=== PATIENT | female | born 1945 | race Caucasian/White ===

== ENCOUNTER → 2017-06-14 | Outpatient (CLI) | payer OTHER, BC ==
[~2017-06-14] MED LIST: ASCA500 PO; ASPI81TA28 PO; ATOR-22 PO; CALC500C70 PO; GLUC1CAP35 PO; LATA0.5S OP; NAPR1TAB9 PO; TYLER650 PO
--- NOTE | 2017-06-14 15:33 | MAMMOGRAPHY REPORT ---
BILATERAL DIGITAL SCREENING MAMMOGRAM WITH CAD: 06/14/2017 CLINICAL HISTORY: Routine screening. Patient has no complaints. TECHNIQUE: Bilateral CC and MLO views were obtained, with additional attempts at both CC and left MLO views to include more posterior tissue. Current study was also evaluated with a Computer Aided Dete ction (CAD) system. COMPARISON: Comparison is made to exams dated: 05/11/2016 mammogram, 05/08/2015 mammogram, 05/07/2014 m ammogram, 05/04/2013 mammogram, 05/02/2012 mammogram, and 04/28/2010 mammogram - [facility] enter. BREAST COMPOSITION: There are scattered areas of fibroglandular density in both breasts. FINDINGS: The exam is suboptimal due to inability of the patient adequately position for the exam, pa rticularly of the left MLO view, despite assistance from a second eeg technologist. There ar e a few stable benign-appearing calcifications in the breasts. No obvious new mass, architectural di stortion or cluster of suspicious microcalcifications is seen. IMPRESSION: ACR BI-RADS CATEGORY 1: NEGATIVE There is no mammographic evidence of malignancy, within the limitations of the exam. A 1 year screeni ng mammogram is recommended. The patient will receive written notification of the results. Approximately 10% of breast cancers are not detected with mammography. A negative mammographic report should not delay biopsy if a clinically suggestive mass is present. Karen Murrieta M.D. ay/:06/14/2017 15:18:29 [employer]: Clara Haq RT(R)(M), [facility] letter sent: Normal 1/2 BI-RADS Code: ACR BI-RADS Category 1: Negative
== END | disposition home or self-care (01) ==
LOC: C.MAMM 08:54
PROVIDERS: ATTEND Family Medicine
DX: Z12.31 Encounter for screening mammogram for malignant neoplasm of breast (principal)

== ENCOUNTER 2017-11-28 14:09 | Inpatient (IN) | payer OTHER, BC ==
[~2017-11-28] VITALS: Ht 154.9 cm; Wt 59.1 kg
[2017-11-28] MEDS ORDERED: HYDROmorphone INJ 0.5 MG/0.5 ML SYR IV PRN (16:00)
--- NOTE | 2017-11-28 16:01 | EMERGENCY ROOM VISIT NOTE ---
History Report prepared by Amauri: Edd Odell Under the Supervision of: Dr. Julio Cesar Yadav M.D. First contact with patient: 15:46 Chief Complaint: FALL Stated Complaint: FELL OUT OF BED THIS AM L KNEE PAIN, CHEMO CURRENT History of Present Illness The patient is a 72 year old female who presents to the Emergency Room with complaints of constant, left-sided weakness following her fall out of bed this morning. The patient's daughter notes that the patient has fallen several times in the past few days. She also notes that the patient has been experiencing left sided weakness and has been unable to bear weight on her left side since her fall. The daughter notes that the patient has been more "glossy-eyed" than usual, is dehydrated, and has not been eating well. The patient has not had anything to eat today. After the fall, the patient's daughter iced the patient' s left hip, gave the patient her prescribed [place], and propped her up with pillows. The patient has brain cancer and her last scheduled dose of chemotherapy is tonight. Source of History: family (Daughter) Onset: Following her fall today. Position: other (Left side. ) Quality: other (Weakness. ) Timing: constant Note: Associated Symptoms: Glossy eyes, loss of appetite, Inability to bear weight on left side. , Review of Systems See HPI for pertinent positives & negatives. A total of 10 systems reviewed and were otherwise negative. Past Medical & Surgical Medical Problems: (1) HLD (hyperlipidemia) Family History No pertinent family history Social History Smoking Status: Unknown if Ever Smoked Occupation Status: retired Current/Historical Medications Scheduled Atorvastatin (Lipitor), 20 MG PO HS Glucosamine-Chondroitin (Osteo Bi-Flex Regular Str), 1 TAB PO DAILY Latanoprost (Xalatan 0.005% Oph Sharla), 1 DROPS OP HS Levetiracetam (Keppra), 750 MG PO BID Lorazepam (Ativan), 0.5 MG PO DIRECTED Multivitamin (Multivitamin), 1 TAB PO DAILY Polyethylene Glycol 3350 (Miralax), 17 GM PO DAILY Temozolomide (Temodar), 100 MG PO DAILY Temozolomide (Temodar), 140 MG PO DAILY Scheduled PRN Acetaminophen (Tylenol Arthitis Ext Rel), 1,300 MG PO Q8 PRN for Pain Hydrocodone/Acetaminophen 5MG/325MG ([place] 5MG/325MG), 1 TABLET PO Q6H PRN for Pain Ondansetron Hcl (Zofran), 8 MG PO BID PRN for Nausea Allergies Coded Allergies: No Known Allergies (Unverified , 07/26/16) Physical Exam Vital Signs Date Time Temp Pulse Resp B/P (MAP) Pulse Ox O2 Delivery O2 Flow Rate FiO2 11/28/17 17:51 76 16 113/70 96 Room Air 11/28/17 16:19 75 16 117/82 95 Room Air 11/28/17 16:17 78 11/28/17 14:45 36.7 87 16 111/72 95 Room Air Physical Exam GENERAL: The patient is cachectic in appearance. Female HEAD: Multiple contusions to face. EYES: Ocular movements intact pupils equal and react to light OROPHARYNX mucous membranes are moist no exudates present no erythema or edema present NECK: Supple no nuchal rigidity CHEST: Good equal expansion LUNGS: Clear and equal to auscultation CARDIAC: Normal S1 and S2 ABDOMEN: Soft nontender no guarding BACK: No CVA tenderness EXTREMITIES: Multiple bruises to her left knee and left hip area. NEURO: The patient appears confused. She is unable to answer questions appropriately. Medical Decision & Procedures ER Provider Diagnostic Interpretation: Radiology results as stated below per my review and radiologist interpretation: CHEST ONE VIEW PORTABLE CLINICAL HISTORY: Pt c/o multiple falls trauma COMPARISON STUDY: 07/26/2016 FINDINGS: The bones soft tissues and hemidiaphragms are normal. The cardiomediastinal silhouette is normal. The lungs are clear. The pulmonary vasculature is normal. IMPRESSION: Negative chest. The above report was generated using voice recognition software. It may contain grammatical, syntax or spelling errors. Electronically signed by: Roberto Carlos Damon M.D. 11/28/2017 5:32 PM Dictated Date/Time: 11/28/2017 5:32 PM HEAD WITHOUT CONTRAST (CT) CT DOSE: 724.83 mGy.cm HISTORY: Mental status change Pt c/o left leg weakness TECHNIQUE: Multiaxial CT images of the head were performed without the use of intravenous contrast. A dose lowering technique was utilized adhering to the principles of ALARA. Comparison: 07/26/2016 Findings: Major sinuses are considered clear. Interval frontal craniotomy. Craniotomy flap is aligned anatomically. Mild ventricular prominence. Midline shift and effacement of the right lateral ventricle is not present currently. There are findings of progressive frontal atrophy as well as encephalomalacia. Appears to be a degree of residual vasogenic edema involving the anterior right frontal as well as anterior left frontal lobes. A component of high density immediately anterior to the right lateral ventricle is present which was identified on the prior study. This presumably represents calcification. No evidence for acute intracranial hemorrhage. The calvarium and skull base are intact. The ventricles and sulci are within normal limits. There is no mass, hematoma, midline shift, or acute infarct. Impression: 1. Interval frontal craniotomy with considerable encephalomalacia involving the anterior right and left frontal lobe regions.. 2. Mildly progressive atrophy compared to the prior study. 3. No evidence for acute intracranial hemorrhage or midline shift. 4. Presence of vasogenic edema of the inferior right frontal lobe raises and a potential concern for residual disease. Correlation with prior imaging studies from any additional facility is considered mandatory. The above report was generated using voice recognition software. It may contain grammatical, syntax or spelling errors. Electronically signed by: Roberto Carlos Damon M.D. 11/28/2017 5:08 PM Dictated Date/Time: 11/28/2017 4:57 PM L FEMUR 2 VIEWS ROUTINE CLINICAL HISTORY: Pt c/o left hip pain trauma. Pain. COMPARISON: None. DISCUSSION: The bones and joint spaces appear intact. There is no evidence of fracture, dislocation or bony disease. Moderate degenerative change of the left knee and left hip. IMPRESSION: No acute process. The above report was generated using voice recognition software. It may contain grammatical, syntax or spelling errors. Electronically signed by: Roberto Carlos Damon M.D. 11/28/2017 5:36 PM Dictated Date/Time: 11/28/2017 5:36 PM PELVIS 1 OR 2 VIEW ROUTINE CLINICAL HISTORY: Pt c/o left hip pain pain COMPARISON: None. DISCUSSION: Mild degenerative changes of the hips bilaterally. Diffuse calcifications soft tissue pelvis suggesting a fibroid-type uterus. No acute bony abnormality. There is no evidence for soft tissue swelling. IMPRESSION: No acute bony abnormality. Calcified uterine fibroids The above report was generated using voice recognition software. It may contain grammatical, syntax or spelling errors. Electronically signed by: Roberto Carlos Damon M.D. 11/28/2017 5:42 PM Dictated Date/Time: 11/28/2017 5:41 PM L TIBIA/FIBULA 2 VIEWS ROUTINE CLINICAL HISTORY: Pt c/o left hip pain trauma. Pain. COMPARISON: None. DISCUSSION: The bones and joint spaces appear intact. There is no evidence of fracture, dislocation or bony disease. There is no evidence for soft tissue swelling. IMPRESSION: Negative study. The above report was generated using voice recognition software. It may contain grammatical, syntax or spelling errors. Electronically signed by: Roberto Carlos Damon M.D. 11/28/2017 5:36 PM Dictated Date/Time: 11/28/2017 5:35 PM Laboratory Results 11/28/17 16:15 Red Blood Count 3.75, Mean Corpuscular Volume 100.0, Mean Corpuscular Hemoglobin 34.1, Mean Corpuscular Hemoglobin Concent 34.1, Mean Platelet Volume 8.7, Neutrophils (%) (Auto) 79.1, Lymphocytes (%) (Auto) 11.3, Monocytes (%) ( Auto) 9.2, Eosinophils (%) (Auto) 0.2, Basophils (%) (Auto) 0.0, Neutrophils # ( Auto) 3.34, Lymphocytes # (Auto) 0.48, Monocytes # (Auto) 0.39, Eosinophils # ( Auto) 0.01, Basophils # (Auto) 0.00 11/28/17 16:15 Test 11/28/17 16:15 11/28/17 16:28 White Blood Count 4.23 K/uL (4.8-10.8) Red Blood Count 3.75 M/uL (4.2-5.4) Hemoglobin 12.8 g/dL (12.0-16.0) Hematocrit 37.5 % (37-47) Mean Corpuscular Volume 100.0 fL (80-100) Mean Corpuscular Hemoglobin 34.1 pg (25-34) Mean Corpuscular Hemoglobin Concent 34.1 g/dl (32-36) Platelet Count 145 K/uL (130-400) Mean Platelet Volume 8.7 fL (7.4-10.4) Neutrophils (%) (Auto) 79.1 % Lymphocytes (%) (Auto) 11.3 % Monocytes (%) (Auto) 9.2 % Eosinophils (%) (Auto) 0.2 % Basophils (%) (Auto) 0.0 % Neutrophils # (Auto) 3.34 K/uL (1.4-6.5) Lymphocytes # (Auto) 0.48 K/uL (1.2-3.4) Monocytes # (Auto) 0.39 K/uL (0.11-0.59) Eosinophils # (Auto) 0.01 K/uL (0-0.5) Basophils # (Auto) 0.00 K/uL (0-0.2) RDW Standard Deviation 46.9 fL (36.4-46.3) RDW Coefficient of Variation 12.9 % (11.5-14.5) Immature Granulocyte % (Auto) 0.2 % Immature Granulocyte # (Auto) 0.01 K/uL (0.00-0.02) Prothrombin Time 9.9 SECONDS (9.0-12.0) Prothromb Time International Ratio 0.9 (0.9-1.1) Activated Partial Thromboplast Time 23.2 SECONDS (21.0-31.0) Partial Thromboplastin Ratio 0.9 Anion Gap 7.0 mmol/L (3-11) Est Creatinine Clear Calc Drug Dose 54.2 ml/min Estimated GFR () 88.6 Estimated GFR (Non- 76.5 BUN/Creatinine Ratio 18.8 (10-20) Calcium Level 9.4 mg/dl (8.5-10.1) Total Creatine Kinase 73 U/L (26-192) Creatine Kinase MB 0.6 ng/ml (0.5-3.6) Creatine Kinase MB Ratio 0.8 (0-3.0) Troponin I < 0.015 ng/ml (0-0.045) Chemistry Specimen Hemolysis Urine Color YELLOW Urine Appearance CLEAR (CLEAR) Urine pH 7.0 (4.5-7.5) Urine Specific [place] 1.014 (1.000-1.030) Urine Protein NEG (NEG) Urine Glucose (UA) NEG (NEG) Urine Ketones NEG (NEG) Urine Occult Blood NEG (NEG) Urine Nitrite NEG (NEG) Urine Bilirubin NEG (NEG) Urine Urobilinogen NEG (NEG) Urine Leukocyte Esterase NEG (NEG) Labs reviewed by ED physician. ECG Rate (beats per minute): 82 Rhythm: normal sinus Findings: other (Pre-Mature atrial complex, No ST elevation or depression, Normal [place]) Change: Patient's electrocardiogram per my interpretation. ED Course 1547: Past medical records reviewed. The patient was evaluated in room B03. A complete history and physical examination was performed. 1600: Ordered Hydromorphone HCL .25mg IV. 1815: I discussed the patient's case with Dr. Steven Chong. He will evaluate the patient for further care and treatment. Medical Decision Differential diagnosis: Etiologies such as metabolic, infection, hypo/hyperglycemia, electrolyte abnormalities, cardiac sources, intracerebral event, toxicologic, neurologic, as well as others were entertained. Medication Reconcilliation Current Medication List: was personally reviewed by me Blood Pressure Screening Patient's blood pressure: Normal blood pressure Consults Time Called: 1801 Consulting Physician: Dr. Steven Chong Returned Call: 1815 I discussed the patient's case with Dr. Steven Chong. He will evaluate the patient for further care and treatment. Impression Primary Impression: Multiple falls Additional Impressions: Left leg pain Confusion Scribe Attestation The scribe's documentation has been prepared under my direction and personally reviewed by me in its entirety. I confirm that the note above accurately reflects all work, treatment, procedures, and medical decision making performed by me. Departure Information Dispostion Being Evaluated By Hospitalist Referrals Catherine Groves D.O. (PCP) Patient Instructions My [facility] Problem Qualifiers
[2017-11-28 16:26] LABS: EOS % 0.2 %; EOS ABS # 0.01 K/uL (0-0.5); HEMATOCRIT 37.5 % (37-47); HEMOGLOBIN 12.8 g/dL (12.0-16.0); IG# 0.01 K/uL (0.00-0.02); LYMPH % 11.3 %; LYMPH ABS # 0.48 K/uL (1.2-3.4); MEAN CORPUSCULAR HEMOGLOBIN 34.1 pg (25-34); MEAN CORPUSCULAR HGB CONC 34.1 g/dl (32-36); MEAN PLATELET VOLUME 8.7 fL (7.4-10.4); MONO % 9.2 %; MONO ABS # 0.39 K/uL (0.11-0.59); NEUT % 79.1 %; NEUT ABS # 3.34 K/uL (1.4-6.5); PLATELET COUNT 145 K/uL (130-400); RED CELL DISTRIBUTION WIDTH CV 12.9 % (11.5-14.5); RED CELL DISTRIBUTION WIDTH SD 46.9 fL (36.4-46.3); WHITE BLOOD COUNT 4.23 K/uL (4.8-10.8)
[2017-11-28 16:36] LABS: INR 0.9 (0.9-1.1); PTT PATIENT 23.2 SECONDS (21.0-31.0)
[2017-11-28] MEDS ORDERED: LORA-741 PO (16:38)
[2017-11-28] MEDS ORDERED: LEVE750T PO (16:38)
[2017-11-28] MEDS ORDERED: HYDR-5688 PO (16:38)
[2017-11-28] MEDS ORDERED: MULT-506 PO (16:38)
[2017-11-28] MEDS ORDERED: POLY335019 PO (16:38)
[2017-11-28] MEDS ORDERED: GLUCTAB18 PO (16:38)
[2017-11-28] MEDS ORDERED: ONDA8TAB6 PO (16:38)
[2017-11-28] MEDS ORDERED: TEMO100I PO (16:38)
[2017-11-28] MEDS ORDERED: TEMO1CAP5 PO (16:38)
[2017-11-28 16:43] LABS: BLOOD UREA NITROGEN 15 mg/dl (7-18); CALCIUM 9.4 mg/dl (8.5-10.1); CARBON DIOXIDE 32 mmol/L (21-32); CKMB 0.6 ng/ml (0.5-3.6); CREATININE 0.78 mg/dl (0.60-1.20); GLUCOSE 138 mg/dl (70-99); SODIUM 142 mmol/L (136-145)
--- NOTE | 2017-11-28 17:09 | DIAGNOSTIC IMAGING REPORT ---
HEAD WITHOUT CONTRAST (CT) CT DOSE: 724.83 mGy.cm HISTORY: Mental status change Pt c/o left leg weakness TECHNIQUE: Multiaxial CT images of the head were performed without the use of intravenous contrast. A dose lowering technique was utilized adhering to the principles of ALARA. Comparison: 07/26/2016 Findings: Major sinuses are considered clear. Interval frontal craniotomy. Craniotomy flap is aligned anatomically. Mild ventricular prominence. Midline shift and effacement of the right lateral ventricle is not present currently. There are findings of progressive frontal atrophy as well as encephalomalacia. Appears to be a degree of residual vasogenic edema involving the anterior right frontal as well as anterior left frontal lobes. A component of high density immediately anterior to the right lateral ventricle is present which was identified on the prior study. This presumably represents calcification. No evidence for acute intracranial hemorrhage. The calvarium and skull base are intact. The ventricles and sulci are within normal limits. There is no mass, hematoma, midline shift, or acute infarct. Impression: 1. Interval frontal craniotomy with considerable encephalomalacia involving the anterior right and left frontal lobe regions.. 2. Mildly progressive atrophy compared to the prior study. 3. No evidence for acute intracranial hemorrhage or midline shift. 4. Presence of vasogenic edema of the inferior right frontal lobe raises and a potential concern for residual disease. Correlation with prior imaging studies from any additional facility is considered mandatory. The above report was generated using voice recognition software. It may contain grammatical, syntax or spelling errors. Electronically signed by: Roberto Carlos Damon M.D. 11/28/2017 5:08 PM Dictated Date/Time: 11/28/2017 4:57 PM
--- NOTE | 2017-11-28 17:34 | DIAGNOSTIC IMAGING REPORT ---
CHEST ONE VIEW PORTABLE CLINICAL HISTORY: Pt c/o multiple falls trauma COMPARISON STUDY: 07/26/2016 FINDINGS: The bones soft tissues and hemidiaphragms are normal. The cardiomediastinal silhouette is normal. The lungs are clear. The pulmonary vasculature is normal. IMPRESSION: Negative chest. The above report was generated using voice recognition software. It may contain grammatical, syntax or spelling errors. Electronically signed by: Roberto Carlos Damon M.D. 11/28/2017 5:32 PM Dictated Date/Time: 11/28/2017 5:32 PM
--- NOTE | 2017-11-28 17:37 | DIAGNOSTIC IMAGING REPORT ---
L TIBIA/FIBULA 2 VIEWS ROUTINE CLINICAL HISTORY: Pt c/o left hip pain trauma. Pain. COMPARISON: None. DISCUSSION: The bones and joint spaces appear intact. There is no evidence of fracture, dislocation or bony disease. There is no evidence for soft tissue swelling. IMPRESSION: Negative study. The above report was generated using voice recognition software. It may contain grammatical, syntax or spelling errors. Electronically signed by: Roberto Carlos Damon M.D. 11/28/2017 5:36 PM Dictated Date/Time: 11/28/2017 5:35 PM
--- NOTE | 2017-11-28 17:38 | DIAGNOSTIC IMAGING REPORT ---
L FEMUR 2 VIEWS ROUTINE CLINICAL HISTORY: Pt c/o left hip pain trauma. Pain. COMPARISON: None. DISCUSSION: The bones and joint spaces appear intact. There is no evidence of fracture, dislocation or bony disease. Moderate degenerative change of the left knee and left hip. IMPRESSION: No acute process. The above report was generated using voice recognition software. It may contain grammatical, syntax or spelling errors. Electronically signed by: Roberto Carlos Damon M.D. 11/28/2017 5:36 PM Dictated Date/Time: 11/28/2017 5:36 PM
--- NOTE | 2017-11-28 17:43 | DIAGNOSTIC IMAGING REPORT ---
PELVIS 1 OR 2 VIEW ROUTINE CLINICAL HISTORY: Pt c/o left hip pain pain COMPARISON: None. DISCUSSION: Mild degenerative changes of the hips bilaterally. Diffuse calcifications soft tissue pelvis suggesting a fibroid-type uterus. No acute bony abnormality. There is no evidence for soft tissue swelling. IMPRESSION: No acute bony abnormality. Calcified uterine fibroids The above report was generated using voice recognition software. It may contain grammatical, syntax or spelling errors. Electronically signed by: Roberto Carlos Damon M.D. 11/28/2017 5:42 PM Dictated Date/Time: 11/28/2017 5:41 PM
[2017-11-28] MEDS ORDERED: LORAZEPAM 2 MG/ML 1 ML VIAL IV STA ×2 (18:50→19:32)
--- NOTE | 2017-11-28 18:50 | DIAGNOSTIC IMAGING REPORT ---
L LOWER EXTREMITY WITHOUT CT DOSE: 631.97 mGy.cm HISTORY: Trauma left femur to mid tibia TECHNIQUE: Multiaxial CT images of the left thigh and lower leg were performed and reformatted in the sagittal and coronal plane without the use of contrast. A dose lowering technique was utilized adhering to the principles of ALARA. COMPARISON: None. FINDINGS: No fracture or dislocation. Soft tissues are unremarkable. Degenerative changes of the left knee and to a lesser extent left hip. Small left knee joint effusion. This presumably is on a degenerative basis. IMPRESSION: No acute bony abnormality. The above report was generated using voice recognition software. It may contain grammatical, syntax or spelling errors. Electronically signed by: Roberto Carlos Damon M.D. 11/28/2017 6:49 PM Dictated Date/Time: 11/28/2017 6:46 PM
--- NOTE | 2017-11-28 20:22 | DIAGNOSTIC IMAGING REPORT ---
BRAIN COMBO CLINICAL HISTORY: Pt brain tumor brain tumor COMPARISON STUDY: No previous studies for comparison. TECHNIQUE: Utilizing a 1.5 Maday magnet and dedicated coil, multiplanar, multiecho imaging of the brain was performed pre and postcontrast administration. IV administration of 5.5 mL of Gadavist contrast was uneventful. FINDINGS: Limited study in terms of diagnostic accuracy as prior studies are not performed at this institution and are not available. Patient also exhibits extensive motion making most sequences near nondiagnostic. Diffusion-weighted images appear to be negative for a major acute ischemic insult. The may be a punctate right superior parietal ischemic focus this is seen on image 19 of 50 this may also represent motion artifact. Postoperative changes consistent with extensive anterior frontal craniotomy defect. Extensive post procedural encephalomalacia right frontal lobe. Vasogenic edema of the mid and inferior right frontal lobe with additional regions of atrophic change involving the left frontal and convexity regions. Postcontrast images are essentially nondiagnostic. They do not show a major component of enhancement although small regions of enhancement are potentially not identified. There is no midline shift. IMPRESSION: 1. Extremely limited study as no prior postoperative scans are available for comparison. 2. Current study is also severely compromised due to severe patient motion despite medication. 3. Extensive right frontal postoperative encephalomalacia with evidence for an anatomically aligned craniotomy flap. 4. Vasogenic edema primarily of the mid to inferior right frontal and to lesser extent left inferior frontal lobes of uncertain chronicity. 5. Potential small punctate acute ischemic focus right superior parietal lobe 6. No significant postcontrast enhancement although quality of those studies is severely compromised due to patient motion and are near nondiagnostic The above report was generated using voice recognition software. It may contain grammatical, syntax or spelling errors. Electronically signed by: Roberto Carlos Damon M.D. 11/28/2017 8:21 PM Dictated Date/Time: 11/28/2017 8:16 PM
[2017-11-28] MEDS ORDERED: MoRPHine SULFATE 2 MG/ML CARP IV PRN (20:30)
[2017-11-28] MEDS ORDERED: ONDANSETRON INJ 2 MG/ML 2 ML VIAL IV PRN (20:30)
[2017-11-28] MEDS ORDERED: ACETAMINOPHEN 325 MG TAB PO PRN (20:30)
--- NOTE | 2017-11-28 21:17 | History and Physical ---
History & Physical Date & Time of Service: Nov 28, 2017 at 21:00 Chief Complaint: Fell Out Of Bed This Am L Knee Pain, Chemo Current Primary Care Physician: Catherine Groves D.O. History of Present Illness Source: family, clinic records This is a 72 year old female with a PMH of anaplastic oligodendroglioma of the frontal lobe, with hx. of craniotomy and ongoing chemotherapy, hx. 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 Patient's daughter is in the room and most of the history is obtained from her. Patient received Ativan prior to MRI and therefore is very lethargic/tired. Patient's daughter is an occupational therapist and lives with and cares for the patient. She states that the patient has been following up with the neuro oncologist at [place] and has been getting serial brain MRIs. She was due for one last week, but due to a snowstorm had to reschedule. She presented here because of multiple falls the past week, states that the patient could not move her LLE. Last fall was the day of arrival and she hit her L knee. Otherwise, there are no complaints, she is eating better and has gained some of her weight back. She was due for one more dose of adjuvant chemotherapy before completing her course. Past Medical/Surgical History Medical Problems: (1) HLD (hyperlipidemia) Status: Chronic Family History No pertinent family history Social History Smoking Status: Unknown if Ever Smoked Occupational Status: retired Multi-Drug Resistant Organisms History of MDRO: No Allergies Coded Allergies: No Known Allergies (Unverified , 07/26/16) Home Medications Scheduled Atorvastatin (Lipitor), 20 MG PO HS Glucosamine-Chondroitin (Osteo Bi-Flex Regular Str), 1 TAB PO DAILY Latanoprost (Xalatan 0.005% Oph Sharla), 1 DROPS OP HS Levetiracetam (Keppra), 750 MG PO BID Lorazepam (Ativan), 0.5 MG PO DIRECTED Multivitamin (Multivitamin), 1 TAB PO DAILY Polyethylene Glycol 3350 (Miralax), 17 GM PO DAILY Temozolomide (Temodar), 100 MG PO DAILY Temozolomide (Temodar), 140 MG PO DAILY Scheduled PRN Acetaminophen (Tylenol Arthitis Ext Rel), 1,300 MG PO Q8 PRN for Pain Hydrocodone/Acetaminophen 5MG/325MG ([place] 5MG/325MG), 1 TABLET PO Q6H PRN for Pain Ondansetron Hcl (Zofran), 8 MG PO BID PRN for Nausea Review of Systems patient is too lethargic to answer these questions, but daughter tells me she is weak and fatigued Constitutional: + weight loss, + weakness, + fatigue Physical Exam Vital Signs Date Time Temp Pulse Resp B/P (MAP) Pulse Ox O2 Delivery O2 Flow Rate FiO2 11/28/17 20:32 81 11/28/17 20:05 84 141/82 96 11/28/17 17:51 76 16 113/70 96 Room Air 11/28/17 16:19 75 16 117/82 95 Room Air 11/28/17 16:17 78 11/28/17 14:45 36.7 87 16 111/72 95 Room Air General Appearance: + thin, + pertinent finding (chronically ill appearing; lethargic) Head: + pertinent finding (+craniotomy scar; bruising noted on the chin, cheeks ) Eyes: + pertinent finding (could not examine due to lethargy) Neck: supple Respiratory/Chest: lungs clear, normal breath sounds, no respiratory distress, no accessory muscle use Cardiovascular: regular rate, rhythm, no edema, no murmur Abdomen/GI: normal bowel sounds, non tender, soft Back: + pertinent finding (could not examine due to lethargy) Extremities/Musculoskelatal: + swelling (L knee), + pertinent finding ( bruising noted throughout lower extremities, worse on the L side) Neurologic/Psych: + pertinent finding (lethargic after medications) Skin: + pertinent finding (bruising throughout) Lymphatic: no adenopathy Diagnostics Laboratory Results Results Past 24 Hours Test 11/28/17 15:53 11/28/17 16:15 11/28/17 16:28 Range/Units Creatine Kinase MB Ratio 0.8 0-3.0 White Blood Count 4.23 4.8-10.8 K/uL Red Blood Count 3.75 4.2-5.4 M/uL Hemoglobin 12.8 12.0-16.0 g/dL Hematocrit 37.5 37-47 % Mean Corpuscular Volume 100.0 80-100 fL Mean Corpuscular Hemoglobin 34.1 25-34 pg Mean Corpuscular Hemoglobin Concent 34.1 32-36 g/dl Platelet Count 145 130-400 K/uL Mean Platelet Volume 8.7 7.4-10.4 fL Neutrophils (%) (Auto) 79.1 % Lymphocytes (%) (Auto) 11.3 % Monocytes (%) (Auto) 9.2 % Eosinophils (%) (Auto) 0.2 % Basophils (%) (Auto) 0.0 % Neutrophils # (Auto) 3.34 1.4-6.5 K/uL Lymphocytes # (Auto) 0.48 1.2-3.4 K/uL Monocytes # (Auto) 0.39 0.11-0.59 K/uL Eosinophils # (Auto) 0.01 0-0.5 K/uL Basophils # (Auto) 0.00 0-0.2 K/uL RDW Standard Deviation 46.9 36.4-46.3 fL RDW Coefficient of Variation 12.9 11.5-14.5 % Immature Granulocyte % (Auto) 0.2 % Immature Granulocyte # (Auto) 0.01 0.00-0.02 K/uL Prothrombin Time 9.9 9.0-12.0 SECONDS Prothromb Time International Ratio 0.9 0.9-1.1 Activated Partial Thromboplast Time 23.2 21.0-31.0 SECONDS Partial Thromboplastin Ratio 0.9 Sodium Level 142 136-145 mmol/L Potassium Level 4.0 3.5-5.1 mmol/L Chloride Level 103 98-107 mmol/L Carbon Dioxide Level 32 21-32 mmol/L Anion Gap 7.0 3-11 mmol/L Blood Urea Nitrogen 15 7-18 mg/dl Creatinine 0.78 0.60-1.20 mg/dl Est Creatinine Clear Calc Drug Dose 54.2 ml/min Estimated GFR () 88.6 Estimated GFR (Non- 76.5 BUN/Creatinine Ratio 18.8 10-20 Random Glucose 138 70-99 mg/dl Calcium Level 9.4 8.5-10.1 mg/dl Total Creatine Kinase 73 26-192 U/L Creatine Kinase MB 0.6 0.5-3.6 ng/ml Troponin I < 0.015 0-0.045 ng/ml Chemistry Specimen Hemolysis Urine Color YELLOW Urine Appearance CLEAR CLEAR Urine pH 7.0 4.5-7.5 Urine Specific [place] 1.014 1.000-1.030 Urine Protein NEG NEG Urine Glucose (UA) NEG NEG Urine Ketones NEG NEG Urine Occult Blood NEG NEG Urine Nitrite NEG NEG Urine Bilirubin NEG NEG Urine Urobilinogen NEG NEG Urine Leukocyte Esterase NEG NEG Diagnostic Radiology L TIBIA/FIBULA 2 VIEWS ROUTINE CLINICAL HISTORY: Pt c/o left hip pain trauma. Pain. COMPARISON: None. DISCUSSION: The bones and joint spaces appear intact. There is no evidence of fracture, dislocation or bony disease. There is no evidence for soft tissue swelling. IMPRESSION: Negative study. PELVIS 1 OR 2 VIEW ROUTINE CLINICAL HISTORY: Pt c/o left hip pain pain COMPARISON: None. DISCUSSION: Mild degenerative changes of the hips bilaterally. Diffuse calcifications soft tissue pelvis suggesting a fibroid-type uterus. No acute bony abnormality. There is no evidence for soft tissue swelling. IMPRESSION: No acute bony abnormality. Calcified uterine fibroids HEAD WITHOUT CONTRAST (CT) CT DOSE: 724.83 mGy.cm HISTORY: Mental status change Pt c/o left leg weakness TECHNIQUE: Multiaxial CT images of the head were performed without the use of intravenous contrast. A dose lowering technique was utilized adhering to the principles of ALARA. Comparison: 07/26/2016 Findings: Major sinuses are considered clear. Interval frontal craniotomy. Craniotomy flap is aligned anatomically. Mild ventricular prominence. Midline shift and effacement of the right lateral ventricle is not present currently. There are findings of progressive frontal atrophy as well as encephalomalacia. Appears to be a degree of residual vasogenic edema involving the anterior right frontal as well as anterior left frontal lobes. A component of high density immediately anterior to the right lateral ventricle is present which was identified on the prior study. This presumably represents calcification. No evidence for acute intracranial hemorrhage. The calvarium and skull base are intact. The ventricles and sulci are within normal limits. There is no mass, hematoma, midline shift, or acute infarct. Impression: 1. Interval frontal craniotomy with considerable encephalomalacia involving the anterior right and left frontal lobe regions.. 2. Mildly progressive atrophy compared to the prior study. 3. No evidence for acute intracranial hemorrhage or midline shift. 4. Presence of vasogenic edema of the inferior right frontal lobe raises and a potential concern for residual disease. Correlation with prior imaging studies from any additional facility is considered mandatory. L FEMUR 2 VIEWS ROUTINE CLINICAL HISTORY: Pt c/o left hip pain trauma. Pain. COMPARISON: None. DISCUSSION: The bones and joint spaces appear intact. There is no evidence of fracture, dislocation or bony disease. Moderate degenerative change of the left knee and left hip. IMPRESSION: No acute process. CHEST ONE VIEW PORTABLE CLINICAL HISTORY: Pt c/o multiple falls trauma COMPARISON STUDY: 07/26/2016 FINDINGS: The bones soft tissues and hemidiaphragms are normal. The cardiomediastinal silhouette is normal. The lungs are clear. The pulmonary vasculature is normal. IMPRESSION: Negative chest. L LOWER EXTREMITY WITHOUT CT DOSE: 631.97 mGy.cm HISTORY: Trauma left femur to mid tibia TECHNIQUE: Multiaxial CT images of the left thigh and lower leg were performed and reformatted in the sagittal and coronal plane without the use of contrast. A dose lowering technique was utilized adhering to the principles of ALARA. COMPARISON: None. FINDINGS: No fracture or dislocation. Soft tissues are unremarkable. Degenerative changes of the left knee and to a lesser extent left hip. Small left knee joint effusion. This presumably is on a degenerative basis. IMPRESSION: No acute bony abnormality. BRAIN COMBO CLINICAL HISTORY: Pt brain tumor brain tumor COMPARISON STUDY: No previous studies for comparison. TECHNIQUE: Utilizing a 1.5 Maday magnet and dedicated coil, multiplanar, multiecho imaging of the brain was performed pre and postcontrast administration. IV administration of 5.5 mL of Gadavist contrast was uneventful. FINDINGS: Limited study in terms of diagnostic accuracy as prior studies are not performed at this institution and are not available. Patient also exhibits extensive motion making most sequences near nondiagnostic. Diffusion-weighted images appear to be negative for a major acute ischemic insult. The may be a punctate right superior parietal ischemic focus this is seen on image 19 of 50 this may also represent motion artifact. Postoperative changes consistent with extensive anterior frontal craniotomy defect. Extensive post procedural encephalomalacia right frontal lobe. Vasogenic edema of the mid and inferior right frontal lobe with additional regions of atrophic change involving the left frontal and convexity regions. Postcontrast images are essentially nondiagnostic. They do not show a major component of enhancement although small regions of enhancement are potentially not identified. There is no midline shift. IMPRESSION: 1. Extremely limited study as no prior postoperative scans are available for comparison. 2. Current study is also severely compromised due to severe patient motion despite medication. 3. Extensive right frontal postoperative encephalomalacia with evidence for an anatomically aligned craniotomy flap. 4. Vasogenic edema primarily of the mid to inferior right frontal and to lesser extent left inferior frontal lobes of uncertain chronicity. 5. Potential small punctate acute ischemic focus right superior parietal lobe 6. No significant postcontrast enhancement although quality of those studies is severely compromised due to patient motion and are near nondiagnostic Impression Assessment and Plan This is a 72 year old female with a PMH of anaplastic oligodendroglioma of the frontal lobe, with hx. of craniotomy and ongoing chemotherapy, hx. 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 Functional Decline patient's decline is most likely associated with worsening cancer, ongoing chemotherapy as well as age will order PT/OT to see if she can get up after the Ativan dose wears off discharge planning eval placed; patient lives with daughter, who is an OT there are multiple falls, but no broken bones noted on radiographs or CT Anaplastic Oligodendroglioma of the Frontal Lobe patient follows with neuro oncology in [place] if symptoms do not improve, should contact this specialist Brain MRI from today not very diagnostic due to patient's movement previous MRI done in September is due for one more dose of oral adjuvant chemo, which we will hold due to her lethargy continue IV Keppra, convert to PO when tolerating DVT ppx SCDs FULL CODE - no extraordinary measures as per daughter, but full code for now; daughter is POA VTE Prophylaxis VTE Risk Assessment Done? Y/N: Yes Risk Level: Moderate
[2017-11-28 21:57] VITALS: BP 152/91; PULSE 89; TEMP 36.9; O2SAT 95; BMI 23.8
[2017-11-28] MEDS: LEVETIRACETAM IV 750 MG in DEXTROSE 5% 100ML 100 ML IV SCH (23:08)
[2017-11-28] MEDS: LATANOPROST 0.005% OP SOLN 2.5 ML BTL OP SCH (23:09)
[2017-11-29] VITALS (7 sets, daily range): BP systolic 102–136; BP diastolic 67–81; PULSE 68–87; TEMP 36.3–37; O2SAT 94–97; BMI 24.7
[2017-11-29] MEDS: LEVETIRACETAM IV 750 MG in DEXTROSE 5% 100ML 100 ML IV SCH (09:05)
[2017-11-29] MEDS ORDERED: ACETAMINOPHEN IV 650 MG in EMPTY BAG 0 ML IV PRN (10:15)
--- NOTE | 2017-11-29 15:14 | Neurology Consultation ---
Neurology Consultation Date of Consultation: Nov 29, 2017. Attending Physician: Juan Zaragoza MD Primary Care Physician: Catherine Groves D.O. Reason for Consultation: left leg weakness, glioma History of Present Illness Source: patient, family Marilia is a 72 year old female with a PMH of anaplastic oligodendroglioma of the frontal lobe, with hx. of craniotomy (Dr Barba) and ongoing chemotherapy, hx. 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 Her daughter is an occupational therapist and lives with and cares for the patient. She states that the patient has been following up with the neuro oncologist at [place] and has been getting serial brain MRIs. She was due for one last week, but due to a snowstorm had to reschedule. She presented here because of multiple falls the past week, states that the patient could not move her LLE. Her daughter states she has had LLE weakness ongoing with the oligo treatment and surgery. However the left sided weakness increased and is causing numerous falls. denies CP, SOB , abdominal pain, headache, N, V, +falls, LLE weakness. Past Medical/Surgical History Medical Problems: (1) Confusion Status: Acute (2) Hemorrhagic cerebrovascular accident (CVA) Status: Acute (3) Left leg pain Status: Acute (4) Multiple falls Status: Acute (5) Seizure Status: Acute Social History Occupation Status: retired Allergies Coded Allergies: No Known Allergies (Unverified , 07/26/16) Current Inpatient Medications Current Inpatient Medications Medications (Trade) Dose Ordered Sig/Milady Route Start Time Stop Time Status Last Admin Dose Admin Levetiracetam 750 mg/Dextrose 107.5 ml @ 420 mls/hr Q12 IV 11/28/17 21:00 12/28/17 20:59 11/29/17 09:05 420 MLS/HR Latanoprost (Xalatan Oph Soln) 1 drops HS OP 11/28/17 21:00 12/28/17 20:59 11/28/17 23:09 1 DROPS Ondansetron HCl (Zofran Inj) 4 mg Q4H PRN IV 11/28/17 20:30 12/28/17 20:29 Morphine Sulfate (MoRPHine SULFATE INJ) 1 mg Q4 PRN IV 11/28/17 20:30 12/12/17 20:29 Acetaminophen (Tylenol Tab) 650 mg Q4H PRN PO 11/28/17 20:30 12/28/17 20:29 Acetaminophen 650 mg/Empty Bag 65 ml @ 260 mls/hr Q6H PRN IV 11/29/17 10:15 12/29/17 10:14 11/29/17 10:43 260 MLS/HR Physical Exam Vital Signs (Past 24 Hrs): Date Time Temp Pulse Resp B/P (MAP) Pulse Ox O2 Delivery O2 Flow Rate FiO2 11/29/17 11:56 37.0 87 20 114/76 (89) 95 Room Air 11/29/17 09:00 Room Air 11/29/17 08:06 36.3 77 18 121/81 (94) 97 Room Air 11/29/17 06:57 37.0 69 16 102/67 (79) 94 Room Air 11/29/17 00:16 36.3 68 18 136/74 (94) 96 Room Air 11/29/17 00:15 Room Air 11/28/17 21:57 36.9 89 16 152/91 95 Room Air 11/28/17 21:06 83 15 153/93 93 Room Air 11/28/17 20:32 81 11/28/17 20:05 84 141/82 96 11/28/17 17:51 76 16 113/70 96 Room Air 11/28/17 16:19 75 16 117/82 95 Room Air 11/28/17 16:17 78 Physical Exam: Constitutional: appearance nourished, sleeping when entering the room. wakes easily Ears, Nose, Mouth and Throat: mucous membranes moist, no injection and skin normal, eyes normal Cardiovascular: normal S-1 and S-2 and regular rate and rhythm Respiratory: clear to auscultation (CTA) and no rales, rhonchi or wheeze Musculoskeletal: no peripheral edema Skin: bruising on face arms and legs, well healing surgical incision on top head and area of cranial depression no discharge Eyes: extraocular muscles intact (EOMI) and pupils equal, round and reactive to light (PERRL) NEUROLOGIC EXAMINATION: Mental status: Alert and interactive Oriented unable to give place, when given choice identifies as hospital not [facility], year 20.. can't states remainder, can not follow 3 command stick out tongue close eyes point to ceiling with right hand Oriented to person Speech dysarthric with some words Cranial Nerves smile eye brow raise symmetric Reflexes: Deep tendon reflexes were symmetrical and graded 2/5. Plantar responses were flexor. Sensory: sensation loss in LE with GT proprioception, intact to cool and light / vibration Coordination: finger to nose very slow and deliberate but no bi pass Gait/Stance: Posture lying in bed Motor: Negative for pronator drift of out stretched arms with eyes closed. Strength: right biceps triceps deltoid hand customer operations manager 5/5, hip flex 4+/5 plantar flex ext 5/5 left biceps triceps deltoid hand customer operations manager 4/5, hip flex 4/5, plantar flex ext 4/5 Laboratory Results Past 24 Hours: 11/28/17 16:15 Red Blood Count 3.75, Mean Corpuscular Volume 100.0, Mean Corpuscular Hemoglobin 34.1, Mean Corpuscular Hemoglobin Concent 34.1, Mean Platelet Volume 8.7, Neutrophils (%) (Auto) 79.1, Lymphocytes (%) (Auto) 11.3, Monocytes (%) ( Auto) 9.2, Eosinophils (%) (Auto) 0.2, Basophils (%) (Auto) 0.0, Neutrophils # ( Auto) 3.34, Lymphocytes # (Auto) 0.48, Monocytes # (Auto) 0.39, Eosinophils # ( Auto) 0.01, Basophils # (Auto) 0.00 11/28/17 16:15 Test 11/28/17 16:15 11/28/17 16:28 White Blood Count 4.23 K/uL (4.8-10.8) Red Blood Count 3.75 M/uL (4.2-5.4) Hemoglobin 12.8 g/dL (12.0-16.0) Hematocrit 37.5 % (37-47) Mean Corpuscular Volume 100.0 fL (80-100) Mean Corpuscular Hemoglobin 34.1 pg (25-34) Mean Corpuscular Hemoglobin Concent 34.1 g/dl (32-36) Platelet Count 145 K/uL (130-400) Mean Platelet Volume 8.7 fL (7.4-10.4) Neutrophils (%) (Auto) 79.1 % Lymphocytes (%) (Auto) 11.3 % Monocytes (%) (Auto) 9.2 % Eosinophils (%) (Auto) 0.2 % Basophils (%) (Auto) 0.0 % Neutrophils # (Auto) 3.34 K/uL (1.4-6.5) Lymphocytes # (Auto) 0.48 K/uL (1.2-3.4) Monocytes # (Auto) 0.39 K/uL (0.11-0.59) Eosinophils # (Auto) 0.01 K/uL (0-0.5) Basophils # (Auto) 0.00 K/uL (0-0.2) RDW Standard Deviation 46.9 fL (36.4-46.3) RDW Coefficient of Variation 12.9 % (11.5-14.5) Immature Granulocyte % (Auto) 0.2 % Immature Granulocyte # (Auto) 0.01 K/uL (0.00-0.02) Prothrombin Time 9.9 SECONDS (9.0-12.0) Prothromb Time International Ratio 0.9 (0.9-1.1) Activated Partial Thromboplast Time 23.2 SECONDS (21.0-31.0) Partial Thromboplastin Ratio 0.9 Anion Gap 7.0 mmol/L (3-11) Est Creatinine Clear Calc Drug Dose 54.2 ml/min Estimated GFR () 88.6 Estimated GFR (Non- 76.5 BUN/Creatinine Ratio 18.8 (10-20) Calcium Level 9.4 mg/dl (8.5-10.1) Total Creatine Kinase 73 U/L (26-192) Creatine Kinase MB 0.6 ng/ml (0.5-3.6) Creatine Kinase MB Ratio 0.8 (0-3.0) Troponin I < 0.015 ng/ml (0-0.045) Chemistry Specimen Hemolysis Urine Color YELLOW Urine Appearance CLEAR (CLEAR) Urine pH 7.0 (4.5-7.5) Urine Specific [place] 1.014 (1.000-1.030) Urine Protein NEG (NEG) Urine Glucose (UA) NEG (NEG) Urine Ketones NEG (NEG) Urine Occult Blood NEG (NEG) Urine Nitrite NEG (NEG) Urine Bilirubin NEG (NEG) Urine Urobilinogen NEG (NEG) Urine Leukocyte Esterase NEG (NEG) Imaging MRI brain combo- Extremely limited study as no prior postoperative scans are available for comparison. Current study is also severely compromised due to severe patient motion despite medication. Extensive right frontal postoperative encephalomalacia with evidence for an anatomically aligned craniotomy flap. Vasogenic edema primarily of the mid to inferior right frontal and to lesser extent left inferior frontal lobes of uncertain chronicity. Potential small punctate acute ischemic focus right superior parietal lobe No significant postcontrast enhancement although quality of those studies is severely compromised due to patient motion and are near nondiagnostic CT left LE- No acute bony abnormality. Impression 72 year old female with known anaplastic oligodendroglima surgical resection , with ongoing left sided weakness and confusion Plan 1. MRI brain combo -vaso edema and left sided resection site 2. pushed MRI into [employer] PACS for review by Dr Chan who is following her with serial MRIs for comparison 3. PT/OT - discharge needs may need rehab prior to return home 4. decadron may be used awaiting comments from Dr Chan 5. notes reviewed from [facility] and clinic visits documented left sided weakness 6. EEG ordered 7. increased Keppra 1000 mg BID 8. gave last dose of Temozolomide 240 mg now- I have seen and discussed above patient with Dr Eulogio Solano, neurology I have seenthis woman examined her reviewed her imaging studies and discussed the recent history with her daughter At this point suspect this is a progressive post radiation issue with increasing leg weakness contralateral to the mass and the brunt of the directed therapy but cannot exclude subclinical seizure activity or actual edema we are going to empirically raise the keppra to 100 bid check and eeg and contact Dr Chan at [facility] for advice re a short decadron challenge to see if the weakness will improve She also needs an evaluation for potential underlying toxic or metabolic or infectious processes that might be producing a similar picture due to indirect cap jewel plate assembler effects Eulogio Solano MD
[2017-11-29] MEDS ORDERED: TEMOzolomide 20 MG CAP PO ONE (17:00)
[2017-11-29] MEDS ORDERED: TEMOZOLOMIDE 100 MG PO ONE (17:00)
[2017-11-29] MEDS ORDERED: TEMOZOLOMIDE 100 MG PO SCH ×2 (20:00)
[2017-11-29] MEDS ORDERED: TEMOzolomide 20 MG CAP PO SCH ×2 (20:00)
[2017-11-29] MEDS: LEVETIRACETAM IV 1,000 MG in DEXTROSE 5% 100ML 100 ML IV SCH (20:40)
[2017-11-29] MEDS: ACETAMINOPHEN 500 MG TAB PO SCH (20:40)
[2017-11-29] MEDS: ATORVASTATIN 20 MG TAB PO SCH (22:10)
[2017-11-29] MEDS: LATANOPROST 0.005% OP SOLN 2.5 ML BTL OP SCH (22:12)
[2017-11-30] VITALS (7 sets, daily range): BP systolic 95–137; BP diastolic 63–84; PULSE 61–79; TEMP 36.5–36.7; O2SAT 94–97; BMI 24.2
--- NOTE | 2017-11-30 07:29 | Progress Note ---
Medicine Progress Note Date & Time of Visit: Nov 30, 2017 at 07:20. Subjective seen resting in bed, comfortable daughter Trinidad at bedside states left knee pain is improving daughter reports patient looks improved- alert, less confusion denies headache, dizziness no other symptoms Objective Last 8 Hrs Date Time Temp Pulse Resp B/P (MAP) Pulse Ox O2 Delivery O2 Flow Rate FiO2 11/30/17 04:00 36.7 61 20 131/71 (91) 94 Room Air 11/30/17 01:13 36.6 64 20 137/77 (97) 97 Room Air 11/30/17 00:05 Room Air Physical Exam: General- oriented x 2, not in distress, speaks in sentences with no effort Head- atraumatic Eyes- PERRL, EOMI, anicteric ENT- oropharynx clear Neck- supple, no JVD, no adenopathy, no thyromegaly; carotids +2/2 Lungs- clear breath sounds bilaterally Heart- regular rhythm; no murmur, normal rate Abdomen- normal bowel sounds, soft, nontender Extremities- no pretibial edema, no calf tenderness; peripheral pulses intact left knee: mild edema, no warmth/tenderness Neuro- alert, oriented x 2; PERRL, EOMI; no facial palsy; no dysarthria; motor 5 /5 on the right, 4/5 on the left; unable to test sensation Skin- warm & dry Assessment & Plan This is a 72 year old female with a PMH of anaplastic oligodendroglioma of the frontal lobe, with hx. of craniotomy and ongoing chemotherapy, hx. 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 Left Sided Weakness, Confusion, Falls History of Frontal Lobe Glioma, s/p Resection 2016, s/p Radiation 2017 - Brain MRI: (+) vasogenic edema, no previous films for comparison - Neuro consulted [facility] [place] [facility] [place]ad[place] - on Temodar - PT/OT discharge planning eval placed; patient lives with daughter, who is an OT there are multiple falls, but no broken bones noted on radiographs or CT Left Knee Edema and Pain - s/p Falls - CT lower ext: no fracture - added Tylenol TID and Tramadol PRN - avoid narcotics as much as possible to avoid delirium - monitor DVT ppx SCDs FULL CODE - no extraordinary measures as per daughter, but full code for now; daughter is POA DISPOSITION pending lives at home with daughter Trinidad who is an OT PT/OT ordered Current Inpatient Medications: Current Inpatient Medications Medications (Trade) Dose Ordered Sig/Milady Route Start Time Stop Time Status Last Admin Dose Admin Latanoprost (Xalatan Oph Soln) 1 drops HS OP 11/28/17 21:00 12/28/17 20:59 11/29/17 22:12 1 DROPS Ondansetron HCl (Zofran Inj) 4 mg Q4H PRN IV 11/28/17 20:30 12/28/17 20:29 11/29/17 17:40 4 MG Acetaminophen 650 mg/Empty Bag 65 ml @ 260 mls/hr Q6H PRN IV 11/29/17 10:15 12/29/17 10:14 11/29/17 10:43 260 MLS/HR Levetiracetam 1000 mg/Dextrose 110 ml @ 420 mls/hr Q12 IV 11/29/17 21:00 12/28/17 20:59 11/29/17 20:40 420 MLS/HR Temozolomide (Temodar Cap) 200 mg TODAY@2000 PO 11/29/17 20:00 12/29/17 19:59 11/29/17 20:38 200 MG Temozolomide (Temodar Cap) 40 mg TODAY@2000 PO 11/29/17 20:00 12/29/17 19:59 11/29/17 20:38 40 MG Acetaminophen (Tylenol Tab) 500 mg TID PO 11/29/17 20:00 12/29/17 19:59 11/29/17 20:40 500 MG Atorvastatin Calcium (Lipitor Tab) 20 mg HS PO 11/29/17 21:00 12/29/17 20:59 11/29/17 22:10 20 MG Docusate Sodium (coLACE CAP) 100 mg DAILY PO 11/30/17 08:00 12/30/17 07:59
[2017-11-30] MEDS: DOCUSATE SODIUM 100 MG CAP PO SCH (08:24)
[2017-11-30] MEDS: ACETAMINOPHEN 500 MG TAB PO SCH ×3 (08:24→21:12)
[2017-11-30] MEDS: LEVETIRACETAM IV 1,000 MG in DEXTROSE 5% 100ML 100 ML IV SCH ×2 (09:16→21:14)
[2017-11-30] MEDS ORDERED: CALCIUM CARBONATE 500 MG CHEWABLE PO PRN (13:15)
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
--- NOTE | 2017-11-30 16:24 | Progress Note ---
Internal Med Progress Note Date of Service: Nov 30, 2017. Provider Documentation: SUBJECTIVE: Seen and examined at bedside Daughter states, patient is intermittently confused Denies any pain, SOB Has generalized weakness No new complaints OBJECTIVE: Vital Signs-as noted below Physical Exam: General Appearance:Moderately built and nourished, no apparent distress Head: normocephalic, Atraumatic Eyes: normal inspection, EOMI, PERRL Neck: supple, Trachea midline Respiratory/Chest: Normal breath sounds, CTA Cardiovascular: S1, S2, No murmur Abdomen/GI:Soft, Non tender, Bowel sounds present Extremities/Musculoskelatal:normal inspection, no edema Neurologic/Psych:grossly no focal neurological deficits, left side 4/5 Skin: normal color, warm Lab data as noted below. ASSESSMENT & PLAN: Patient is a 72 yr female with a PMH of anaplastic oligodendroglioma of the frontal lobe, with hx. of craniotomy and ongoing chemotherapy, hx. 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 as the tumor bed appears stable No plan for Decadron for now Appreciate Neurology Input Keppra increased to 1000mg BID Neuro discussing with [place] [facility] [place]pleted Temodar yesterday (5 days every month) PT/OT Needs rehab placement Needs Keppra levels checked in 2 weeks Left Knee Edema and Pain s/p Falls CT lower ext: no fracture added Tylenol TID and Tramadol PRN avoid narcotics as much as possible to avoid delirium monitor DVT px SCDs Code Status: Full Code - no extraordinary measures as per daughter, but full code for now; daughter is POA Disposition: lives at home with daughter Trinidad who is an OT PT/OT ordered Needs Rehab placement Vital Signs: Date Time Temp Pulse Resp B/P (MAP) Pulse Ox O2 Delivery O2 Flow Rate FiO2 11/30/17 16:21 36.7 71 16 98/66 (77) 96 Room Air 11/30/17 14:01 Room Air 11/30/17 11:48 36.5 79 16 122/76 (91) 95 11/30/17 08:00 Room Air 11/30/17 07:36 36.5 62 14 118/78 (91) 96 Room Air 62 11/30/17 04:00 36.7 61 20 131/71 (91) 94 Room Air 11/30/17 01:13 36.6 64 20 137/77 (97) 97 Room Air 11/30/17 00:05 Room Air 11/29/17 20:05 Room Air 11/29/17 19:23 36.8 73 20 108/71 (83) 94 Room Air
--- NOTE | 2017-11-30 17:11 | ELECTROENCEPHALOGRAPH REPORT ---
REQUESTING PHYSICIAN: Dahpnie Cedillo; Eulogio Solano MD CLINICAL DIAGNOSIS: Known oligoglioma right hemisphere, post-resection radiation therapy with continued episodic confusion and increasing weakness, left lower extremity. ELECTROCARDIOGRAM DIAGNOSIS: Focally abnormal EEG with high amplitude delta activity overlying the right frontal and central regions during wakefulness. No clear potentially epileptogenic activity is seen. DESCRIPTION OF TRACING: This EEG was done as a bedside recording with simultaneous video analysis of patient movement and behavior. There is quite a bit of rotational activity in the head and muscle movements which reflected on the EEG to some degree with myelogenous artifacts arising episodically and some head rolling artifacts were seen as well. Between these events; however, there is evidence for what appears to be a normal background rhythm in the alpha range at least over the left hemisphere posteriorly which is of up to 9-10 Hz of maximum frequency and 30 microvolts of maximum amplitude. This activity is less well-developed in the right hemisphere and actually may be shifted into the theta frequencies. Polymorphic theta activity in the mid frequency ranges are seen in normal amounts over the left hemisphere as her beta activity in the frontal regions, but over the right frontal region there is quite a bit of high amplitude at times somewhat rhythmic delta activity without clear cut associated sharp waves or clear behavioral abnormalities. No rhythmic theta activity, poly polyspike or spike wave bursts or other potentially epileptiform patterns are seen. The slow wave activity is relatively continuous, although at times this amplitude varies and other times is replaced by activity in the lower theta range of lower voltage. Again, no behavioral abnormalities or clear clinical seizure activity is seen. INTERPRETATION: This EEG reveals evidence for focal abnormalities overlying the right hemisphere and consistent with a known structural disease in this area. Some of the amplitude activity may reflect the presence of the craniotomy and slow wave activity clearly associates with structural lesion, but does not correlate with potentially epileptogenic activity seen clinically or on EEG. The absence of spike or spike wave discharges; however, does not exclude the presence of potentially ongoing episodic seizure activity, and clinical correlation is required.
[2017-11-30] MEDS: ATORVASTATIN 20 MG TAB PO SCH (21:13)
[2017-11-30] MEDS: LATANOPROST 0.005% OP SOLN 2.5 ML BTL OP SCH (22:03)
[2017-12-01] VITALS (7 sets, daily range): BP systolic 102–133; BP diastolic 66–85; PULSE 72–87; TEMP 36.5–36.9; O2SAT 94–98; BMI 24.3
[2017-12-01 06:03] LABS: HEMATOCRIT 33.6 % (37-47); HEMOGLOBIN 11.4 g/dL (12.0-16.0); MEAN CELL VOLUME 99.1 fL (80-100); MEAN CORPUSCULAR HEMOGLOBIN 33.6 pg (25-34); MEAN CORPUSCULAR HGB CONC 33.9 g/dl (32-36); MEAN PLATELET VOLUME 8.8 fL (7.4-10.4); PLATELET COUNT 151 K/uL (130-400); RED CELL DISTRIBUTION WIDTH CV 12.7 % (11.5-14.5); RED CELL DISTRIBUTION WIDTH SD 45.8 fL (36.4-46.3); WHITE BLOOD COUNT 3.13 K/uL (4.8-10.8)
[2017-12-01 06:43] LABS: CALCIUM 9.1 mg/dl (8.5-10.1); CREATININE 0.69 mg/dl (0.60-1.20); POTASSIUM 3.2 mmol/L (3.5-5.1)
[2017-12-01] MEDS: DOCUSATE SODIUM 100 MG CAP PO SCH (09:25)
[2017-12-01] MEDS: ACETAMINOPHEN 500 MG TAB PO SCH ×3 (09:25→19:20)
[2017-12-01] MEDS: LEVETIRACETAM IV 1,000 MG in DEXTROSE 5% 100ML 100 ML IV SCH ×2 (09:25→19:57)
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
[2017-12-01] MEDS ORDERED: POTASSIUM CHLORIDE 20 MEQ/15 ML UDC PO STA (17:15)
[2017-12-01] MEDS: LATANOPROST 0.005% OP SOLN 2.5 ML BTL OP SCH (19:58)
[2017-12-01] MEDS: ATORVASTATIN 20 MG TAB PO SCH (19:58)
[2017-12-02] VITALS (8 sets, daily range): BP systolic 109–129; BP diastolic 73–83; PULSE 56–83; TEMP 36.4–36.8; O2SAT 96–99; BMI 24.9
[2017-12-02 06:34] LABS: CALCIUM 8.7 mg/dl (8.5-10.1); CREATININE 0.6 mg/dl (0.60-1.20); POTASSIUM 3.4 mmol/L (3.5-5.1)
[2017-12-02] MEDS: DOCUSATE SODIUM 100 MG CAP PO SCH ×2 (08:18→10:33)
[2017-12-02] MEDS: ACETAMINOPHEN 500 MG TAB PO SCH (08:18)
[2017-12-02] MEDS: LEVETIRACETAM IV 1,000 MG in DEXTROSE 5% 100ML 100 ML IV SCH (08:18)
[2017-12-02] MEDS ORDERED: NURSING VERBAL MED ORDER ONE ×2 (09:30→13:00)
[2017-12-02] MEDS ORDERED: ACETAMINOPHEN 325 MG TAB PO PRN (09:45)
[2017-12-02] MEDS ORDERED: DOCUSATE SODIUM 100 MG/10 ML UDC PO SCH (10:00)
[2017-12-02] MEDS: ACETAMINOPHEN SOLN 500 MG/15.62 ML UDP PO SCH ×3 (10:33→22:34)
[2017-12-02] MEDS ORDERED: POTASSIUM CHLORIDE 10 MEQ TABCR PO STA (12:03)
--- NOTE | 2017-12-02 12:38 | Progress Note ---
Internal Med Progress Note Date of Service: Dec 02, 2017. Provider Documentation: SUBJECTIVE: Seen and examined at bedside Reports constipation No other complaints Denies any chest pain, SOB Has generalized weakness Daughter at bedside OBJECTIVE: Vital Signs-as noted below Physical Exam: General Appearance:Moderately built and nourished, no apparent distress Head: normocephalic, Atraumatic Eyes: normal inspection, EOMI, PERRL Neck: supple, Trachea midline Respiratory/Chest: Normal breath sounds, CTA Cardiovascular: S1, S2, No murmur Abdomen/GI:Soft, Non tender, Bowel sounds present Extremities/Musculoskelatal:normal inspection, no edema Neurologic/Psych:grossly no focal neurological deficits, left side 4/5 Skin: normal color, warm Lab data as noted below. ASSESSMENT & PLAN: Patient is a 72 yr female with a PMH of anaplastic oligodendroglioma of the frontal lobe, with hx. of craniotomy and ongoing chemotherapy, hx. 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 Will discuss with Neurology and start accordingly EEG as below PT/OT Needs rehab placement Needs Keppra levels checked in 2 weeks Hypokalemia: Replace and monitor Constipation: Started bowel regimen Left Knee Edema and Pain s/p Falls CT lower ext: no fracture added Tylenol TID and Tramadol PRN avoid narcotics as much as possible to avoid delirium monitor DVT px SCDs Code Status: Full Code - no extraordinary measures as per daughter, but full code for now; daughter is POA Disposition: lives at home with daughter Trinidad who is an OT PT/OT ordered Needs Rehab placement social sciences chair on board Plan to discharge when placement available PROCEDURES: EEG: This EEG reveals evidence for focal abnormalities overlying the right hemisphere and consistent with a known structural disease in this area. Some of the amplitude activity may reflect the presence of the craniotomy and slow wave activity clearly associates with structural lesion, but does not correlate with potentially epileptogenic activity seen clinically or on EEG. The absence of spike or spike wave discharges; however, does not exclude the presence of potentially ongoing episodic seizure activity, and clinical correlation is required. Vital Signs: Date Time Temp Pulse Resp B/P (MAP) Pulse Ox O2 Delivery O2 Flow Rate FiO2 12/02/17 11:39 36.6 83 18 120/83 (95) 97 Room Air 12/02/17 08:30 99 Room Air 12/02/17 07:19 36.4 56 20 129/76 (93) 99 Room Air 12/02/17 04:57 36.6 66 18 116/75 (89) 98 Room Air 12/02/17 00:15 Room Air 12/01/17 23:33 36.7 76 20 133/85 (101) 97 Room Air 12/01/17 19:35 36.9 87 18 117/73 (88) 98 Room Air 12/01/17 19:15 Room Air 12/01/17 16:24 Room Air 12/01/17 14:50 36.5 80 20 102/66 (78) 97 Room Air Lab Results: Results Past 24 Hours Test 12/02/17 05:31 Range/Units Sodium Level 142 136-145 mmol/L Potassium Level 3.4 3.5-5.1 mmol/L Chloride Level 108 98-107 mmol/L Carbon Dioxide Level 28 21-32 mmol/L Anion Gap 6.0 3-11 mmol/L Blood Urea Nitrogen 20 7-18 mg/dl Creatinine 0.60 0.60-1.20 mg/dl Est Creatinine Clear Calc Drug Dose 70.5 ml/min Estimated GFR () 106.3 Estimated GFR (Non- 91.7 BUN/Creatinine Ratio 33.6 10-20 Random Glucose 100 70-99 mg/dl Calcium Level 8.7 8.5-10.1 mg/dl Magnesium Level 2.3 1.8-2.4 mg/dl
[2017-12-02] MEDS ORDERED: POTASSIUM CHLORIDE 20 MEQ/15 ML UDC PO ONE (13:15)
[2017-12-02] MEDS: POLYETHYLENE (MIRALAX) 17 GM PACK PO PRN ×2 (14:28→18:43)
--- NOTE | 2017-12-02 15:08 | Neurology Progress Notes ---
Neurology Progress Note Date of Service Dec 02, 2017. Subjective Marilia appears to be improving everyday but is still somewhat confused. She is sitting bedside with her daughter and OT washing her face, brushing her teeth. Daughter was questioning where steroid should be given at this time. There was some conversation with Dr Chan's office which needed clarified. Objective Date Time Temp Pulse Resp B/P (MAP) Pulse Ox O2 Delivery O2 Flow Rate FiO2 12/02/17 11:39 36.6 83 18 120/83 (95) 97 Room Air 12/02/17 08:30 99 Room Air 12/02/17 07:19 36.4 56 20 129/76 (93) 99 Room Air 12/02/17 04:57 36.6 66 18 116/75 (89) 98 Room Air 12/02/17 00:15 Room Air 12/01/17 23:33 36.7 76 20 133/85 (101) 97 Room Air 12/01/17 19:35 36.9 87 18 117/73 (88) 98 Room Air 12/01/17 19:15 Room Air 12/01/17 16:24 Room Air Last 24 Hours Test 12/02/17 05:31 Sodium Level 142 mmol/L Potassium Level 3.4 mmol/L Chloride Level 108 mmol/L Carbon Dioxide Level 28 mmol/L Anion Gap 6.0 mmol/L Blood Urea Nitrogen 20 mg/dl Creatinine 0.60 mg/dl Est Creatinine Clear Calc Drug Dose 70.5 ml/min Estimated GFR () 106.3 Estimated GFR (Non- 91.7 BUN/Creatinine Ratio 33.6 Random Glucose 100 mg/dl Calcium Level 8.7 mg/dl Magnesium Level 2.3 mg/dl Imaging: no new imaging Exam: no exam for this visit Current Inpatient Medications Medications (Trade) Dose Ordered Sig/Milady Route Start Time Stop Time Status Last Admin Dose Admin Latanoprost (Xalatan Oph Soln) 1 drops HS OP 11/28/17 21:00 12/28/17 20:59 12/01/17 19:58 1 DROPS Ondansetron HCl (Zofran Inj) 4 mg Q4H PRN IV 11/28/17 20:30 12/28/17 20:29 11/29/17 17:40 4 MG Acetaminophen 650 mg/Empty Bag 65 ml @ 260 mls/hr Q6H PRN IV 11/29/17 10:15 12/29/17 10:14 11/29/17 10:43 260 MLS/HR Atorvastatin Calcium (Lipitor Tab) 20 mg HS PO 11/29/17 21:00 12/29/17 20:59 12/01/17 19:58 20 MG Docusate Sodium (coLACE CAP) 100 mg DAILY PO 11/30/17 08:00 12/30/17 07:59 12/01/17 09:25 100 MG Calcium Carbonate (Tums Chew Tab) 500 mg Q6H PRN PO 11/30/17 13:15 12/30/17 13:14 11/30/17 13:30 500 MG Acetaminophen (Tylenol Soln) 500 mg TID PO 12/02/17 10:00 01/01/18 09:59 12/02/17 10:33 500 MG Senna/Docusate Sodium (Senokot S Tab) 2 tab HS PO 12/02/17 21:00 01/01/18 20:59 Polyethylene (Miralax Powder Packet) 17 gm DAILY PRN PO 12/02/17 12:15 01/01/18 12:14 12/02/17 14:28 17 GM Levetiracetam (Keppra Soln) 1,000 mg Q12 PO 12/02/17 21:00 01/01/18 20:59 Impression 72 year old female with known anaplastic oligodendroglima surgical resection , with ongoing left sided weakness and confusion Plan 1. 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 pushed MRI into [facility] PACS for review by Dr Chan who is following her with serial MRIs for comparison 3. PT/OT - discharge needs may need rehab prior to return home 4. Decadron may be used awaiting comments from Dr Chan- no decadron at this time 5. notes reviewed from [facility] hospital and clinic visits documented left sided weakness 6. EEG no seizure focus 7. increased Keppra 1000 mg BID- will need a level in 2 weeks - she is tolerating at this point would watch for irritability with increase 8. gave last dose of Temozolomide 240 mg done yesterday will see as needed in our clinic follow up already scheduled with Dr Chan in [place] will sign off for now call if questions concerns. Conversation today with Dr Chan at [place]. She advise her viewing and comparing of the MRI previously done by [facility] and the MRI done at [facility] which was pushed through to [facility] PACS system were very similar and did show some edema which was there on the [facility] imaging. She would only give steroids to Marilia if she was deteriorating at this time. She was concerned with the side effects of the steroids including psychosis that would compound the current confusion if there was not a clear indication to give them. IF it is given in the future with her decline she would give only a Medrol dose pack type taper. I have relayed this information to Marilia's daughter and the hospitalist attending Dr Edward Kidd. I have seen and discussed above patient with Dr Eulogio Solano, neurology Above reviewed and discussed with Daphnie Solano MD
[2017-12-02] MEDS: LATANOPROST 0.005% OP SOLN 2.5 ML BTL OP SCH (21:00)
[2017-12-02] MEDS ORDERED: LEVETIRACETAM SOLN 500 MG/5 ML UDP PO SCH (21:00)
[2017-12-02] MEDS: ATORVASTATIN 20 MG TAB PO SCH (21:00)
[2017-12-02] MEDS ORDERED: DOCUSATE SODIUM/SENNA 50/8.6MG TAB PO SCH (21:00)
[2017-12-02] MEDS: LEVETIRACETAM ORAL SOLN 100MG/ML PO SCH (22:31)
[2017-12-03] VITALS (8 sets, daily range): BP systolic 104–129; BP diastolic 66–85; PULSE 68–75; TEMP 36.4–36.6; O2SAT 97–99; Ht 154.9 cm; Wt 59.1 kg
[2017-12-03 05:48] LABS: HEMATOCRIT 34.2 % (37-47); HEMOGLOBIN 11.3 g/dL (12.0-16.0); MEAN CELL VOLUME 99.4 fL (80-100); MEAN CORPUSCULAR HEMOGLOBIN 32.8 pg (25-34); MEAN PLATELET VOLUME 8.9 fL (7.4-10.4); PLATELET COUNT 148 K/uL (130-400); RED CELL DISTRIBUTION WIDTH CV 12.9 % (11.5-14.5); RED CELL DISTRIBUTION WIDTH SD 46.6 fL (36.4-46.3); WHITE BLOOD COUNT 2.45 K/uL (4.8-10.8)
[2017-12-03 06:22] LABS: CALCIUM 8.7 mg/dl (8.5-10.1); CREATININE 0.67 mg/dl (0.60-1.20); POTASSIUM 3.7 mmol/L (3.5-5.1)
[2017-12-03] MEDS: ACETAMINOPHEN SOLN 500 MG/15.62 ML UDP PO SCH ×2 (08:40→14:28)
[2017-12-03] MEDS: LEVETIRACETAM ORAL SOLN 100MG/ML PO SCH (08:40)
[2017-12-03] MEDS ORDERED: DOCUSATE SODIUM 100 MG/10 ML UDC PO SCH (09:30)
--- NOTE | 2017-12-03 15:34 | Progress Note ---
Internal Med Progress Note Date of Service: Dec 03, 2017. Provider Documentation: SUBJECTIVE: Seen and examined at bedside Doing well Constipation resolved Denies any chest pain, SOB Daughter at bedside Planned to be discharged to today OBJECTIVE: Vital Signs-as noted below Physical Exam: General Appearance:Moderately built and nourished, no apparent distress Head: normocephalic, Atraumatic Eyes: normal inspection, EOMI, PERRL Neck: supple, Trachea midline Respiratory/Chest: Normal breath sounds, CTA Cardiovascular: S1, S2, No murmur Abdomen/GI:Soft, Non tender, Bowel sounds present Extremities/Musculoskelatal:normal inspection, no edema Neurologic/Psych:grossly no focal neurological deficits, left side 4/5 Skin: normal color, warm Lab data as noted below. ASSESSMENT & PLAN: Patient is a 72 yr female with a PMH of anaplastic oligodendroglioma of the frontal lobe, with hx. of craniotomy and ongoing chemotherapy, hx. 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 as the tumor bed appears stable Appreciate Neurology Input Continue Keppra increased to 1000mg BID Neuro discussing with Neuro Oncology in [facility] Completed Temodar yesterday (5 days every month) No indication for Decadron per unless patient deteriorates EEG as below PT/OT Needs rehab placement Needs Keppra levels checked in 2 weeks Hypokalemia: Resolved monitor Constipation: Resolved Continue bowel regimen Left Knee Edema and Pain s/p Falls CT lower ext: no fracture added Tylenol TID and Tramadol PRN avoid narcotics as much as possible to avoid delirium monitor DVT px SCDs Code Status: Full Code - no extraordinary measures as per daughter, but full code for now; daughter is POA Disposition: Plan to discharge to [facility] today Follow up with your PCP in 1 week after being discharged from [facility] Follow up with your Neurologist in 2 weeks as scheduled Get Keppra levels checked in 2 weeks and follow up with your Neurologist with results Your Keppra is changed to 1000mg Twice a day Seek immediate medical attention if your symptoms reoccur or worsen PROCEDURES: EEG: This EEG reveals evidence for focal abnormalities overlying the right hemisphere and consistent with a known structural disease in this area. Some of the amplitude activity may reflect the presence of the craniotomy and slow wave activity clearly associates with structural lesion, but does not correlate with potentially epileptogenic activity seen clinically or on EEG. The absence of spike or spike wave discharges; however, does not exclude the presence of potentially ongoing episodic seizure activity, and clinical correlation is required. Vital Signs: Date Time Temp Pulse Resp B/P (MAP) Pulse Ox O2 Delivery O2 Flow Rate FiO2 12/03/17 14:58 36.6 75 20 129/85 (100) 97 12/03/17 11:46 36.5 70 13 117/78 (91) 97 Room Air 12/03/17 08:05 97 Room Air 12/03/17 08:00 99 Room Air 12/03/17 07:49 36.5 70 15 104/66 (79) 97 Room Air 12/03/17 03:44 36.4 68 18 116/75 (89) 97 Room Air 12/03/17 00:00 98 Room Air 12/02/17 23:36 36.8 70 18 123/79 (94) 97 Room Air 12/02/17 20:00 98 Room Air 12/02/17 19:39 36.8 82 18 109/73 (85) 98 Room Air 12/02/17 15:55 36.5 76 18 118/78 (91) 96 Room Air 12/02/17 15:51 Room Air Lab Results: Results Past 24 Hours Test 12/03/17 05:10 Range/Units White Blood Count 2.45 4.8-10.8 K/uL Red Blood Count 3.44 4.2-5.4 M/uL Hemoglobin 11.3 12.0-16.0 g/dL Hematocrit 34.2 37-47 % Mean Corpuscular Volume 99.4 80-100 fL Mean Corpuscular Hemoglobin 32.8 25-34 pg Mean Corpuscular Hemoglobin Concent 33.0 32-36 g/dl RDW Standard Deviation 46.6 36.4-46.3 fL RDW Coefficient of Variation 12.9 11.5-14.5 % Platelet Count 148 130-400 K/uL Mean Platelet Volume 8.9 7.4-10.4 fL Sodium Level 142 136-145 mmol/L Potassium Level 3.7 3.5-5.1 mmol/L Chloride Level 109 98-107 mmol/L Carbon Dioxide Level 27 21-32 mmol/L Anion Gap 6.0 3-11 mmol/L Blood Urea Nitrogen 24 7-18 mg/dl Creatinine 0.67 0.60-1.20 mg/dl Est Creatinine Clear Calc Drug Dose 63.9 ml/min Estimated GFR () 102.5 Estimated GFR (Non- 88.4 BUN/Creatinine Ratio 35.9 10-20 Random Glucose 100 70-99 mg/dl Calcium Level 8.7 8.5-10.1 mg/dl
[2017-12-03] MEDS ORDERED: DOCU60SY11 PO (15:38)
[2017-12-03] MEDS ORDERED: KPP/1000 PO (15:38)
[2017-12-03] MEDS ORDERED: HYDR-5688 PO (15:38)
--- NOTE | 2017-12-03 15:40 | Discharge Summary ---
Discharge Summary Date of Service Dec 03, 2017. Discharge Summary Admission Date: Nov 28, 2017 at 20:22 Discharge Date: Dec 03, 2017 Discharge Disposition: Rehab Principal Diagnosis: anaplastic oligodendroglioma Procedures: MRI Brain: 1. Extremely limited study as no prior postoperative scans are available for comparison. 2. Current study is also severely compromised due to severe patient motion despite medication. 3. Extensive right frontal postoperative encephalomalacia with evidence for an anatomically aligned craniotomy flap. 4. Vasogenic edema primarily of the mid to inferior right frontal and to lesser extent left inferior frontal lobes of uncertain chronicity. 5. Potential small punctate acute ischemic focus right superior parietal lobe 6. No significant postcontrast enhancement although quality of those studies is severely compromised due to patient motion and are near nondiagnostic CXR: Negative chest. Pelvic X ray: No acute bony abnormality. Calcified uterine fibroids Consultations: Neurology Pending Studies/Follow-Up: Follow up with your PCP in 1 week after being discharged from [facility] Follow up with your Neurologist in 2 weeks as scheduled Get Keppra levels checked in 2 weeks and follow up with your Neurologist with results Your Keppra is changed to 1000mg Twice a day Seek immediate medical attention if your symptoms reoccur or worsen Medication Reconciliation New Medications: Levetiracetam (Keppra) 1,000 Mg Tab 1 TAB PO BID for 30 Days, #60 TAB 1 Refill Docusate Sodium (Gnp Stool Softener) 60 Mg/15 Ml Syp 100 MG PO DAILY for 30 Days, #30 EA Continued Medications: Acetaminophen (Tylenol Arthitis Ext Rel) 650 Mg Ertab 1300 MG PO Q8 PRN for Pain, CAP Atorvastatin (Lipitor) 20 Mg Tab 20 MG PO HS, TAB Glucosamine-Chondroitin (Osteo Bi-Flex Regular Str) 1 Tab Tab 1 TAB PO DAILY Hydrocodone/Acetaminophen 5MG/325MG (Sterling 5MG/325MG) Tab 1 TABLET PO Q6H PRN for Pain for 3 Days, #12 TAB (This prescription has been renewed) Latanoprost (Xalatan 0.005% Oph Sharla) 0.005 % Sharla 1 DROPS OP HS, #2.5 ML 3 Refills Lorazepam (Ativan) 0.5 Mg Tab 0.5 MG PO DIRECTED TAKE 30 MINS PRIOR TO RADIATION/MRI Multivitamin (Multivitamin) Tab 1 TAB PO DAILY, TAB Ondansetron Hcl (Zofran) 8 Mg Tab 8 MG PO BID PRN for Nausea, TAB *ONLY TAKES WHEN ON CHEMO* Polyethylene Glycol 3350 (Miralax) 1 Pow Pow 17 GM PO DAILY Temozolomide (Temodar) 100 Mg Inj 100 MG PO DAILY TAKES WITH 140MG CAP. TOTAL DOSE 340MG DAILY Temozolomide (Temodar) 140 Mg Cap 140 MG PO DAILY TAKES ALONG WITH 100MG CAP, TOTAL DOSE 340MG DAILY Discontinued Medications: Levetiracetam (Keppra) 750 Mg Tab 750 MG PO BID, TAB Admission Information HPI (per Admitting provider): This is a 72 year old female with a PMH of anaplastic oligodendroglioma of the frontal lobe, with hx. of craniotomy and ongoing chemotherapy, hx. 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 Patient's daughter is in the room and most of the history is obtained from her. Patient received Ativan prior to MRI and therefore is very lethargic/tired. Patient's daughter is an occupational therapist and lives with and cares for the patient. She states that the patient has been following up with the neuro oncologist at [place] and has been getting serial brain MRIs. She was due for one last week, but due to a snowstorm had to reschedule. She presented here because of multiple falls the past week, states that the patient could not move her LLE. Last fall was the day of arrival and she hit her L knee. Otherwise, there are no complaints, she is eating better and has gained some of her weight back. She was due for one more dose of adjuvant chemotherapy before completing her course. Physical Exam (per Admitting): General Appearance: + thin, + pertinent finding (chronically ill appearing; lethargic) Head: + pertinent finding (+craniotomy scar; bruising noted on the chin, cheeks) Eyes: + pertinent finding (could not examine due to lethargy) Neck: supple Respiratory/Chest: lungs clear, normal breath sounds, no respiratory distress, no accessory muscle use Cardiovascular: regular rate, rhythm, no edema, no murmur Abdomen/GI: normal bowel sounds, non tender, soft Back: + pertinent finding (could not examine due to lethargy) Extremities/Musculoskelatal: + swelling (L knee), + pertinent finding ( bruising noted throughout lower extremities, worse on the L side) Neurologic/Psych: + pertinent finding (lethargic after medications) Skin: + pertinent finding (bruising throughout) Lymphatic: no adenopathy Hospital Course Patient is a 72 yr female with a PMH of anaplastic oligodendroglioma of the frontal lobe, with hx. of craniotomy and ongoing chemotherapy, hx. 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 as the tumor bed appears stable Appreciate Neurology Input Continue Keppra increased to 1000mg BID Neuro discussing with Neuro Oncology in [facility] Completed Temodar yesterday (5 days every month) No indication for Decadron per unless patient deteriorates EEG as below PT/OT Needs rehab placement Needs Keppra levels checked in 2 weeks Hypokalemia: Resolved monitor Constipation: Resolved Continue bowel regimen Left Knee Edema and Pain s/p Falls CT lower ext: no fracture added Tylenol TID and Tramadol PRN avoid narcotics as much as possible to avoid delirium monitor DVT px SCDs Code Status: Full Code - no extraordinary measures as per daughter, but full code for now; daughter is POA Disposition: Plan to discharge to [facility] today Follow up with your PCP in 1 week after being discharged from [facility] Follow up with your Neurologist in 2 weeks as scheduled Get Keppra levels checked in 2 weeks and follow up with your Neurologist with results Your Keppra is changed to 1000mg Twice a day Seek immediate medical attention if your symptoms reoccur or worsen PROCEDURES: EEG: This EEG reveals evidence for focal abnormalities overlying the right hemisphere and consistent with a known structural disease in this area. Some of the amplitude activity may reflect the presence of the craniotomy and slow wave activity clearly associates with structural lesion, but does not correlate with potentially epileptogenic activity seen clinically or on EEG. The absence of spike or spike wave discharges; however, does not exclude the presence of potentially ongoing episodic seizure activity, and clinical correlation is required. Total time spent on discharge = 36 minutes This includes examination of the patient, discharge planning, medication reconciliation, and communication with other providers. Discharge Instructions Discharge Instructions Date of Service Dec 03, 2017. Admission Reason for Admission: Astrocytic Glioma; Declining Functional Status Discharge Discharge Diagnosis / Problem: anaplastic oligodendroglioma Discharge Goals Goal(s): Decrease discomfort, Improve function Activity Recommendations Activity Limitations: resume your previous activity Exercise/Sports Limitations: as tolerated . Instructions / Follow-Up Instructions / Follow-Up Follow up with your PCP in 1 week after being discharged from [facility] Follow up with your Neurologist in 2 weeks as scheduled Get Keppra levels checked in 2 weeks and follow up with your Neurologist with results Your Keppra is changed to 1000mg Twice a day Seek immediate medical attention if your symptoms reoccur or worsen Current Hospital Diet Patient's current hospital diet: Regular Diet Discharge Diet Recommended Diet: Regular Diet Pending Studies Studies pending at discharge: no Medical Emergencies . Who to Call and When: Medical Emergencies: If at any time you feel your situation is an emergency, please call 911 immediately. . Non-Emergent Contact Non-Emergency issues call your: Primary Care Provider, Neurologist Call Non-Emergent contact if: you have a fever, your pain is not controlled, your pain is worsening, your pain is unusual for you, your pain is concerning you, you have any medication questions Seek immediate medical attention if your symptoms reoccur or worsen . . "Provider Documentation" section prepared by Edward Kidd. . VTE Core Measure Inpt VTE Proph given/why not?: SCD's <Electronically signed by Edward Kidd MD> Signed: 12/03/17 1539 Signed: The status of this report is Signed * If report status is Draft, the document has not been finalized by the responsible provider.
== END 2017-12-03 16:54 | DRG 54 ==
LOC: C.EDB 14:11 → C.4E 20:22 → ENRESERV 20:52
PROVIDERS: ADMIT Family Medicine; ATTEND Internal Medicine
DX: C71.1 Malignant neoplasm of frontal lobe (principal); G93.49 Other encephalopathy; E78.5 Hyperlipidemia, unspecified; R29.6 Repeated falls; M25.562 Pain in left knee; E87.6 Hypokalemia; K59.00 Constipation, unspecified; Z86.73 Personal history of transient ischemic attack (TIA), and cerebral infarction without residual deficits